=== PATIENT | female | born 1975 | race Caucasian/White ===

== ENCOUNTER → 2020-05-17 13:40 | Outpatient (CLI) | payer BC, SELFPAY ==
--- NOTE | ~2020-05-17 | MM_ITS ---
EXAMINATION: MM screening [facility] BI w hui HISTORY: Screening mammogram TECHNIQUE: Craniocaudal and mediolateral oblique 3-D tomosynthesis images were obtained and synthetic 2-D images were generated. CAD analysis was submitted and interpreted. COMPARISON: 04/20/2019, 04/12/2019, 04/01/2018 BREAST PARENCHYMAL COMPOSITION: There are scattered areas of fibroglandular density. FINDINGS: Low-density masses in the upper outer quadrant of the left breast. Appearance of clustered microcysts on the comparison examination. There is no evidence of suspicious mass, calcification, or architectural distortion to suggest malignancy in either breast. There has been no suspicious interva l change. IMPRESSION: 1. No mammographic evidence of malignancy. 2. Recommend routine screening mammography in one year. BI-RADS Category 2: Benign finding(s). Reviewed, dictated and finalized at location A. RVISOR [facility] WAVE
== END ==
PROVIDERS: Visit Provider Obstetrics & Gynecology
DX: Z12.31 Encounter for screening mammogram for malignant neoplasm of breast (principal)
CPT/HCPCS: 77063; 77067

== ENCOUNTER → 2021-07-30 15:53 | Outpatient (CLI) | payer BC, SELFPAY ==
--- NOTE | ~2021-07-30 | MM_ITS ---
EXAMINATION: MM screening [facility] BI w hui HISTORY: Screening mammogram TECHNIQUE: Craniocaudal and mediolateral oblique 3-D tomosynthesis images were obtained and synthetic 2-D images were generated. CAD analysis was submitted and interpreted. COMPARISON: . May 17, 2020 bilateral screening mammogram April 20, 2019 diagnostic left mammogram and limited left breast ultrasound April 12, 2019, April 01, 2018 bilateral screening mammogram examinations BREAST PARENCHYMAL COMPOSITION: There are scattered areas of fibroglandular density. FINDINGS: There is asymmetry in the anterior outer right breast on CC projection. Diagnostic right ma mmogram and right breast ultrasound examination are recommended. Otherwise there is no evidence of suspicious mass, calcification, or architectural distortion to sugg est malignancy in either breast. There has been no other suspicious interval change. IMPRESSION: 1. Right mammographic asymmetry, anterior outer right breast 2. Diagnostic right mammogram and right breast ultrasound examination are recommended. BI-RADS Category 0: Incomplete: Needs additional imaging evaluation. Reviewed, dictated and finalized at location A. IMPRESSION: 1. Right mammographic asymmetry, anterior outer right breast 2. Diagnostic right mammogram and right breast ultrasound examination are recom mended. BI-RADS Category 0: Incomplete: Needs additional imaging evaluation.
== END ==
PROVIDERS: Visit Provider Obstetrics & Gynecology
DX: Z12.31 Encounter for screening mammogram for malignant neoplasm of breast (principal); R92.8 Other abnormal and inconclusive findings on diagnostic imaging of breast
CPT/HCPCS: 77063; 77067

== ENCOUNTER → 2021-08-09 07:46 | Outpatient (CLI) | payer BC, SELFPAY ==
--- NOTE | ~2021-08-09 | MMUS_ITS ---
EXAMINATION: MM diagnostic kat RT w hui, US breast RT limited HISTORY: Follow-up right breast asymmetry TECHNIQUE: Additional 3-D tomosynthesis images of the right breast were performed and synthetic 2-D i mages were generated. CAD analysis was submitted and interpreted. High resolution Limited right breas t ultrasound was performed. COMPARISON: Comparison to multiple prior studies sequentially, with oldest reviewed study dated 11/2016. BREAST PARENCHYMAL COMPOSITION: Breast composed of scattered areas of fibroglandular density FINDINGS: MAMMOGRAPHIC FINDINGS: There is a focal asymmetry in the upper outer quadrant of the right breast, just lateral to the midli ne, middle third. No suspicious calcifications. ULTRASOUND: Limited right breast ultrasound: At 12:00, 6 cm from the nipple there is a 3 mm cyst. At 11:00, 4 cm from the nipple, there is a 6 mm intramammary lymph node. No suspicious masses are identified. IMPRESSION: 1. Focal asymmetry upper, slightly outer aspect of the right breast likely corresponds to benign sono graphic findings. 2. Recommend 6 month follow-up diagnostic right mammogram BI-RADS category 3, probably benign findings. Reviewed, dictated and finalized at location A. IMPRESSION: 1. Focal asymmetry upper, slightly outer aspect of the right breast likely jay jay esponds to benign sonographic findings. 2. Recommend 6 month follow-up diagnostic right mammogram BI-RADS category 3, probably benign findings.
== END ==
PROVIDERS: PCP Family Medicine; Visit Provider Obstetrics & Gynecology
DX: R92.8 Other abnormal and inconclusive findings on diagnostic imaging of breast (principal)
CPT/HCPCS: 76642; 77061; 77065; G0279

== ENCOUNTER → 2022-06-24 08:45 | Outpatient (CLI) | payer BC, SELFPAY ==
--- NOTE | ~2022-06-24 | MMUS_ITS ---
EXAMINATION: MM diagnostic kat RT w hui, US breast RT complete HISTORY: Six-month follow-up for focal mammographic asymmetry in the upper slightly outer aspect of t he right breast TECHNIQUE: Full field ML, MLO, CC and spot CC 3-D tomosynthesis images of the right breast were perfo rmed and synthetic 2-D images were generated. CAD analysis was submitted and interpreted. High resolu tion complete right breast ultrasound was performed. COMPARISON: 08/09/2021 diagnostic right mammogram and limited right breast ultrasound 07/30/2021 and 05/17/2020 bilateral screening mammogram examinations BREAST PARENCHYMAL COMPOSITION: There are scattered areas of fibroglandular density. FINDINGS: MAMMOGRAPHIC FINDINGS: On ML view (without definite correlate on MLO or CC views) there are 2 oval approximately 6-7 mm asym metric incompletely circumscribed opacities in the central mid to upper breast. No suspicious mass, architectural distortion, malignant calcification, skin thickening or retraction of either breast is noted otherwise. ULTRASOUND: 11:00 5 cm from nipple: Parallel circumscribed 3 x 6.7 x 6.4 mm hypoechoic lesion without internal va scularity or posterior shadowing 11:00 5 cm from nipple: Parallel circumscribed approximately 2 x 5.5 mm similar hypoechoic lesion, wi thout shadowing IMPRESSION: 1. Probable benign findings 2. 6 month diagnostic right mammogram and right breast ultrasound follow-up are recommended BI-RADS category 3, probably benign findings. Reviewed, dictated and finalized at location A. IMPRESSION: 1. Probable benign findings 2. 6 month diagnostic right mammogram and right breast ultrasound follow-up are recommended BI-RADS category 3, probably benign findings.
== END ==
PROVIDERS: PCP Obstetrics & Gynecology; Visit Provider Obstetrics & Gynecology
DX: N64.89 Other specified disorders of breast (principal)
CPT/HCPCS: 76641; 77061; 77065; G0279

== ENCOUNTER 2023-11-10 12:08 | Outpatient (CLI) | payer BC, SELFPAY ==
--- NOTE | ~2023-11-10 | MM_ITS ---
EXAMINATION: MM screening [facility] BI w hui HISTORY: Screening TECHNIQUE: Craniocaudal and mediolateral oblique 3-D tomosynthesis images were obtained and synthetic 2-D images were generated. CAD analysis was submitted and interpreted. COMPARISON: Comparison to multiple prior studies sequentially, with oldest reviewed study dated 03/15. BREAST PARENCHYMAL COMPOSITION: Not dense: There are scattered areas of fibroglandular density. FINDINGS: There is no evidence of suspicious mass, calcification, or architectural distortion to sugg est malignancy in either breast. There has been no suspicious interval change. IMPRESSION: 1. No mammographic evidence of malignancy. 2. Recommend routine screening mammography in one year. BI-RADS Category 1: Negative Reviewed, dictated and finalized at location B.
== END 2023-11-10 12:09 ==
LOC: MICIMG 12:09
PROVIDERS: PCP Obstetrics & Gynecology; Visit Provider Obstetrics & Gynecology
DX: Z12.31 Encounter for screening mammogram for malignant neoplasm of breast (principal)
CPT/HCPCS: 77063; 77067

== ENCOUNTER 2025-01-25 15:13 | Outpatient (CLI) | payer BC, SELFPAY ==
--- NOTE | ~2025-01-25 | MM_ITS ---
EXAMINATION: MM screening [facility] BI w hui HISTORY: Screening TECHNIQUE: Craniocaudal and mediolateral oblique 3-D tomosynthesis images were obtained and synthetic 2-D images were generated. CAD analysis was submitted and interpreted. COMPARISON: 07/30/2021 BREAST PARENCHYMAL COMPOSITION: There are scattered areas of fibroglandular density. FINDINGS: There is no evidence of suspicious mass, calcification, or architectural distortion to suggest malignancy. There has been no suspicious interval change. IMPRESSION: 1. No mammographic evidence of malignancy. Recommend routine screening mammography in one year. BI-RADS Category 2: Benign finding(s) Reviewed, dictated and finalized at location Q. IMPRESSION: 1. No mammographic evidence of malignancy. Recommend routine screening mammogra phy in one year. BI-RADS Category 2: Benign finding(s)
== END 2025-01-25 15:14 | disposition home or self-care (01) ==
LOC: MICIMG 15:13
PROVIDERS: PCP Obstetrics & Gynecology; Visit Provider Obstetrics & Gynecology
DX: Z12.31 Encounter for screening mammogram for malignant neoplasm of breast (principal)
CPT/HCPCS: 77063; 77067